=== PATIENT | female | born 1960 | race African-American/Black ===

== ENCOUNTER 2019-07-27 11:31 | Emergency (ER) | payer SELFPAY ==
[2019-07-27 11:51] VITALS: BMI 32.9
[2019-07-27] MEDS ORDERED: LACTATED RINGERS SOLUTION 1000 ML INFUS.BAG IV ONE (12:22)
--- NOTE | 2019-07-27 12:29 | PDOC ---
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 Patient reports she was sitting down and started having sudden chills all over her body. Denies fever, chest pain, palpitation, shortness of breath, headache, numbness or tingling sensation. Denies nausea or vomiting. Denies sick contacts or recent travel. Denies any other symptoms Is this a multiple visit Asthma Patient?: No Timing/Duration: 1-3 hours Severity: mild Associated Symptoms: reports: fever/chills, loss of appetite, malaise. denies: chest pain, headaches, shortness of breath, syncope Aspirin Received prior to arrival: Yes: no aspirin today <Kolby Lawrence - Last Filed: 07/27/19 14:28> <Darvin Muñoz - Last Filed: 07/31/19 16:20> - General Chief Complaint: Lightheaded Stated Complaint: DIZZNESS Time Seen by Provider: 07/27/19 12:05 Past History - Past Medical History COPD: No HTN: Yes - Immunization History Immunization Up to Date: No - Psycho Social/Smoking Cessation Hx Smoking History: Never smoked Hx Alcohol Use: No Drug/Substance Use Hx: No <Kolby Lawrence - Last Filed: 07/27/19 14:28> <Darvin Muñoz - Last Filed: 07/31/19 16:20> - Past Medical History Allergies/Adverse Reactions: Allergies Allergy/AdvReac Type Severity Reaction Status Date / Time Penicillins Allergy Verified 07/27/19 11:47 Home Medications: Ambulatory Orders Chlorthalidone 25 mg PO DAILY 07/27/19 Lisinopril 20 mg PO DAILY 07/27/19 Review of Systems - Review of Systems Able to Perform ROS?: Yes Is the patient limited Irish proficient: No Constitutional: Yes: Chills, Malaise. No: Fever HEENTM: No: Symptoms Reported, See HPI, Eye Pain, Blurred Vision, Tearing, Recent change in vision, Double Vision, Cataracts, Ear Pain, Ocular Prothesis, Ear Discharge, Nose Pain, Nose Congestion, Tinnitus, Nose Bleeding, Hearing Loss , Throat Pain, Throat Swelling, Mouth Pain, Dental Problems, Difficulty Swallowing, Mouth Swelling, Other Respiratory: No: Symptoms reported, See HPI, Cough, Orthopnea, Shortness of Breath, SOB with Exertion, SOB at Rest, Stridor, Wheezing, Productive cough, Hemoptysis, Other Cardiac (ROS): Yes: Symptoms Reported, See HPI, Lightheadedness. No: Chest Pain , Edema, Irregular Heart Rate, Palpitations, Syncope, Chest Tightness, Other ABD/GI: Yes: Symptoms Reported, See HPI, Nausea. No: Abd. Pain w/ defecation, Blood Streaked Bowels, Difficulty Swallowing, Vomiting : No: Symptoms Reported, Burning, Dysuria, Frequency, Urgency Integumentary: No: Symptoms Reported Neurological: Yes: See HPI, Dizziness. No: Symptoms reported, Headache, Numbness, Tingling, Weakness, Unsteady Gait Psychiatric: No: Anxiety, Depression, Frequent Crying, Stressors, Sleep Pattern Change, Emotional Problems, Mood Swings, Change in Appetite, Other All Other Systems: Reviewed and Negative <Kolby Lawrencees - Last Filed: 07/27/19 14:28> *Physical Exam - Vital Signs Last Vital Signs Temp Pulse Resp BP Pulse Ox 97.8 F 77 18 93/57 L 99 07/27/19 11:48 07/27/19 11:48 07/27/19 11:48 07/27/19 11:48 07/27/19 11:48 - Physical Exam 07/27/19 12:38 GENERAL: Well developed, well nourished. Awake and alert. No acute distress. HEENT: Normocephalic, atraumatic. PERRLA, EOMI. No conjunctival pallor. Sclera are non-icteric. Moist mucous membranes. Oropharynx is clear. NECK: Supple. Full ROM. CARDIOVASCULAR: Regular rate and rhythm. No murmurs, rubs, or gallops. Distal pulses are 2+ and symmetric. PULMONARY: No evidence of respiratory distress. Lungs clear to auscultation bilaterally. No wheezing, rales or rhonchi. ABDOMINAL: Soft. Non-tender. Non-distended. No rebound or guarding. No organomegaly. Normoactive bowel sounds. MUSCULOSKELETAL Normal range of motion at all joints. SKIN: Warm and dry. Normal capillary refill. No rashes. No jaundice. NEUROLOGICAL: Alert, awake, appropriate. Gait is normal without ataxia. PSYCHIATRIC: Cooperative. Good eye contact. Appropriate mood General Appearance: Yes: Nourished, Appropriately Dressed. No: Apparent Distress <Kolby Lawrence - Last Filed: 07/27/19 14:28> - Vital Signs Last Vital Signs Temp Pulse Resp BP Pulse Ox 98.8 F 74 18 99/65 100 07/27/19 14:55 07/27/19 14:55 07/27/19 14:55 07/27/19 14:55 07/27/19 14:55 <Darvin Muñoz - Last Filed: 07/31/19 16:20> ED Treatment Course - LABORATORY CBC & Chemistry Diagram: 07/27/19 13:00 07/27/19 13:00 <Kolby Lawrence - Last Filed: 07/27/19 14:28> - LABORATORY CBC & Chemistry Diagram: 07/27/19 13:00 07/27/19 13:00 - ADDITIONAL ORDERS Additional order review: 07/27/19 13:00 Urine Culture - Final Urine - Urine Clean Catch Strep Agalactiae Group B 07/27/19 13:00 RBC 3.96 MCV 91.8 MCHC 33.7 RDW 12.9 MPV 7.9 Neutrophils % 76.8 Lymphocytes % 14.6 Monocytes % 6.8 Eosinophils % 1.2 Basophils % 0.6 - Medications Given in the ED: ED Medications Discontinued Medications Generic Name Dose Route Start Last Admin Trade Name Freq PRN Reason Stop Dose Admin Lactated Ringer's 1,000 ml 07/27/19 12:22 07/27/19 13:15 Lactated Ringers Solution IV 07/27/19 12:23 1,000 ml ONCE ONE Administration <Darvin Muñoz - Last Filed: 07/31/19 16:20> Medical Decision Making - Medical Decision Making 07/27/19 12:37 Patient with history of hypertension on lisinopril presented with complaint of sudden onset of chills, dizziness and 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 Patient reports she was sitting down and started having sudden chills all over her body. Denies fever, chest pain, palpitation, shortness of breath, headache, numbness or tingling sensation. Denies nausea or vomiting. Denies sick contacts or recent travel. Denies any other symptoms Clinical exam unremarkable with normal cardio exam and normal neuro exam. No abdominal tenderness on exam. EKG done shows incomplete bundle branch block which could be regional patient symptoms. Will do basic lab tests CBC, CMP and cardiac profile labs to rule out acute cardio pathology. IV hydration with normal saline 1 L ordered. Patient mildly hypotensive and reassess after IV hydration. Patient report has been having decreased appetite for the past 3 days and has not been eating much 07/27/19 14:28 Labs are unremarkable including CBC chemistry and cardiac labs. Patient reported improvement of symptoms now post hydration. Patient symptoms likely caused by dehydration. Patient stable for discharge to advised to increase fluid intake and follow-up with cardiology for incomplete bundle branch block <Kolby Lawrence - Last Filed: 07/27/19 14:28> - Medical Decision Making 07/31/19 16:19 I reviewed the case of the mid-level practitioner and was available for consultation while in the emergency department <Darvin Muñoz - Last Filed: 07/31/19 16:20> Discharge - Discharge Information Problems reviewed: Yes - Admission No <Kolby Lawrence - Last Filed: 07/27/19 14:28> <Darvin Muñoz - Last Filed: 07/31/19 16:20> - Discharge Information Clinical Impression/Diagnosis: Light headedness, Dehydration Condition: Improved Disposition: HOME - Follow up/Referral Referrals: Chukcy Gordon MD [Staff Physician] - - Patient Discharge Instructions Patient Printed Discharge Instructions: DI for Dehydration -- Adult Additional Instructions: Your blood work was normal. Your symptoms likely caused by dehydration. Increase fluid intake. Follow-up with referred safety council director
[2019-07-27 13:16] LABS: BASO % 0.6 % (0-2.0); EOS % 1.2 % (0-4.5); HEMATOCRIT 36.4 % (32.4-45.2); HEMOGLOBIN 12.2 GM/dL (10.7-15.3); LYMPH % 14.6 % (8-40); MCH 30.9 pg (25.7-33.7); MCHC 33.7 g/dl (32.0-36.0); MEAN CELL VOLUME 91.8 fl (80-96); MEAN PLT VOLUME 7.9 fl (7.5-11.1); MONO % 6.8 % (3.8-10.2); NEUT % 76.8 % (42.8-82.8); PLATELET COUNT 194 K/MM3 (134-434); RBC 3.96 M/mm3 (3.60-5.2); RDW 12.9 % (11.6-15.6); WHITE BLOOD COUNT 3.1 K/mm3 (4.0-10.0)
[2019-07-27 13:20] LABS: EPI CELLS 8.2 /HPF (0-5/HPF); HYALINE CASTS 11 /lpf (0-8); URINE APPEARANCE CLEAR; URINE BACTERIA 89.1 /hpf (NEGATIVE); URINE BILIRUBIN NEGATIVE (NEGATIVE); URINE COLOR YELLOW; URINE GLUCOSE (UA) NEGATIVE (NEGATIVE); URINE KETONE NEGATIVE (NEGATIVE); URINE LEUK ESTERASE 1+ (NEGATIVE); URINE NITRITE NEGATIVE (NEGATIVE); URINE PROTEIN TRACE (NEGATIVE); URINE RBC 2 /hpf (0-4); URINE WBC 5 /hpf (0-5)
[2019-07-27 13:50] LABS: ALBUMIN 3.8 g/dl (3.4-5.0); ALK PHOS 72 U/L (45-117); ANION GAP 7 MMOL/L (8-16); BILIRUBIN,TOTAL 0.6 mg/dL (0.2-1); BLOOD UREA NITROGEN 14.2 mg/dL (7-18); CHLORIDE 98 mmol/L (98-107); CO2 33 mmol/L (21-32); CREATININE 1.3 mg/dL (0.55-1.3); GLUCOSE,RANDOM 112 mg/dL (74-106); POTASSIUM 3.4 mmol/L (3.5-5.1); SGOT/AST 38 U/L (15-37); SGPT/ALT 24 U/L (13-61); SODIUM 137 mmol/L (136-145); TOT PROT 7.8 g/dl (6.4-8.2)
[2019-07-27 14:55] VITALS: BP 99/65; PULSE 74; TEMP 98.8
--- NOTE | 2019-07-28 11:30 | EKG ---
Test Reason : Blood Pressure : / mmHG Vent. Rate : 070 BPM Atrial Rate : 070 BPM P-R Int : 136 ms QRS Dur : 112 ms QT Int : 422 ms P-R-T Axes : 024 -07 024 degrees QTc Int : 455 ms NORMAL SINUS RHYTHM INCOMPLETE RIGHT BUNDLE BRANCH BLOCK VOLTAGE CRITERIA FOR LEFT VENTRICULAR HYPERTROPHY ABNORMAL ECG NO PREVIOUS ECGS AVAILABLE Confirmed by Radnolph Roberts MD ([id number]) on 07/28/2019 11:30:08 AM Referred By: Confirmed By:Randolph Roberts MD
== END 2019-07-27 14:55 | disposition home or self-care (01) ==
LOC: JER 11:31
DX: E86.0 Dehydration (principal); I10 Essential (primary) hypertension; Z88.0 Allergy status to penicillin
CPT/HCPCS: 36415; 80053; 81003; 82550; 82553; 84484; 85025; 87086; 87804; 93005; 93010; 99283-25